=== PATIENT | male | born 1975 | race Caucasian/White ===

== ENCOUNTER 2017-01-16 20:08 | Emergency (ER) | payer SELFPAY ==
[2017-01-16 21:45] VITALS: BP 138/77
== END 2017-01-16 21:45 | disposition home or self-care (01) ==
LOC: ED 20:08
DX: M54.5 Low back pain (principal)
CPT/HCPCS: J1885

== ENCOUNTER 2018-12-08 15:42 | Emergency (ER) | payer MEDICAID | END 2018-12-08 16:21 | disposition left against medical advice (07) | LOC: ED 15:42 | DX: Z53.21 Procedure and treatment not carried out due to patient leaving prior to being seen by health care provider (principal) ==

== ENCOUNTER 2018-12-09 11:34 | Emergency (ER) | payer MEDICAID ==
[~2018-12-09] VITALS: Ht 180.3 cm; Wt 109.3 kg
[2018-12-09 11:40] VITALS: BP 142/77; Ht 180.3 cm; Wt 109.3 kg
== END 2018-12-09 12:26 | disposition home or self-care (01) ==
LOC: ED 11:34
DX: H10.9 Unspecified conjunctivitis (principal)

== ENCOUNTER 2019-09-01 16:53 | Emergency (ER) | payer SELFPAY ==
[~2019-09-01] VITALS: Ht 175.3 cm; Wt 105.2 kg
[2019-09-01 17:13] VITALS: BP 144/81; Ht 175.3 cm; Wt 105.2 kg
== END 2019-09-01 20:23 | disposition home or self-care (01) ==
LOC: ED 16:53
DX: M79.645 Pain in left finger(s) (principal); R22.32 Localized swelling, mass and lump, left upper limb
CPT/HCPCS: J1885

== ENCOUNTER 2020-04-28 19:29 | Emergency (ER) | payer SELFPAY ==
[~2020-04-28] VITALS: Ht 177.8 cm; Wt 105.2 kg
[2020-04-28 19:38] VITALS: BP 135/73; Ht 177.8 cm; Wt 105.2 kg
== END 2020-04-28 22:02 | disposition left against medical advice (07) ==
LOC: ED 19:29
DX: M54.5 Low back pain (principal)